=== PATIENT | male | born 1990 | race Two or more races ===

== ENCOUNTER 2022-12-10 10:57 | Emergency (ER) | payer OTHER ==
[~2022-12-10] VITALS: Ht 170.2 cm; Wt 72.6 kg
[2022-12-10] MEDS ORDERED: ASACOL HD800 MG PO (11:15)
== END 2022-12-10 16:26 | disposition home or self-care (01) ==
LOC: ER 10:57
DX: K82.4 Cholesterolosis of gallbladder (principal)